=== PATIENT | female | born 1950 | race American Indian/Alaskan Native ===

== ENCOUNTER 2020-07-31 07:32 | Day surgery (SDC) | payer MEDICARE ==
[2020-07-31] MEDS ORDERED: SODIUM CHLORIDE 0.9% 500 ML 500 ML ONE (08:04)
[2020-07-31] MEDS ORDERED: ASPIRIN EC 325 MG TAB PO ONE (08:08)
[2020-07-31] MEDS ORDERED: ASPIRIN 325 MG TAB ONE (08:12)
[2020-07-31 08:27] LABS: Basophils % (Auto) 0.6 % (0.0-1.8); Eosinophils # (Auto) 0.1 K/mm3 (0.0-0.4); Eosinophils % (Auto) 1.4 % (0.0-4.3); Hemoglobin 13.2 gm/dl (10.1-14.3); Lymphocytes # (Auto) 1.5 K/mm3 (1.2-5.4); Mean Corpuscular HGB Conc 33 % (30-34); Mean Corpuscular Volume 86 fl (79-97); Monocytes # (Auto) 0.7 K/mm3 (0.0-0.8); Monocytes % (Auto) 11.2 % (0.0-7.3); Platelet Count 241 K/mm3 (140-440); Red Blood Count 4.66 M/mm3 (3.65-5.03); Red Cell Distribution Width 14.6 % (13.2-15.2)
[2020-07-31 08:37] LABS: INR 0.91 (0.87-1.13)
[2020-07-31] MEDS ORDERED: VERAPAMIL 5 MG/2 ML INJ ONE (08:37)
[2020-07-31] MEDS ORDERED: HEPARIN 10,000 UNITS/10 ML VIAL ONE (08:37)
[2020-07-31] MEDS ORDERED: LIDOCAINE (2%) 20 MG/1 ML VIAL 20 ML MDV INFILTRATI ONE (08:37)
[2020-07-31] MEDS ORDERED: HEPARIN/NS 5000 UNIT/500ML 1,000 ML IR ONE (08:37)
[2020-07-31] MEDS ORDERED: NITROGLYCERIN SYRINGE 3 ML ONE (08:39)
[2020-07-31 08:46] LABS: Blood Urea Nitrogen 8 mg/dL (7-17); Calcium 8.6 mg/dL (8.4-10.2); Hemolysis Index 466
[2020-07-31 08:48] LABS: BUN/Creatinine Ratio 11
[2020-07-31] MEDS ORDERED: MIDAZOLAM 2 MG/2 ML INJ ONE (08:54)
[2020-07-31] MEDS ORDERED: fentaNYL 100 MCG/2 ML INJ ONE (08:54)
[2020-07-31] MEDS ORDERED: SODIUM CHLORIDE 0.9% 500 ML 500 ML IV SCH (09:00)
[2020-07-31 10:41] LABS: BUN/Creatinine Ratio 10; Blood Urea Nitrogen 8 mg/dL (7-17); Calcium 8.9 mg/dL (8.4-10.2); Hemolysis Index 4
[2020-07-31] MEDS ORDERED: METOPROLOL TARTRATE 5 MG/5 ML INJ IV ONE (11:24)
--- NOTE | 2020-07-31 11:41 | Short Stay Summary ---
Short Stay Documentation Date of service: 07/31/20 - History H&P: obtained from office - Allergies and Medications Current Medications: Allergies Penicillins Allergy (Verified 07/31/20 08:08) Rash Home Medications Medication Instructions Recorded Confirmed Last Taken Type Atorvastatin [Lipitor Tab] 40 mg PO QHS 07/31/20 07/31/20 07/30/20 History Cetirizine HCl [Zyrtec 10mg tab] 10 mg PO DAILY 07/31/20 07/31/20 07/30/20 Hi story Gabapentin [Neurontin] 600 mg PO BID 07/31/20 07/31/20 07/30/20 History Levothyroxine Sodium 125 mcg PO DAILY 07/31/20 07/31/20 07/30/20 History [Levothyroxine] Metoprolol Xl [Metoprolol 50 mg PO QDAY 07/31/20 07/31/20 07/30/20 History SUCCINATE ER TAB] Spironolactone [Aldactone] 25 mg PO QDAY 07/31/20 07/31/20 07/30/20 History Active Medications Sodium Chloride (Nacl 0.9% 500 Ml) 500 mls @ 50 mls/hr IV DIRECT RAIZA Stop: 07/31/20 18:59 - Brief post op/procedure progress note Date of procedure: 07/31/20 Pre-op diagnosis: sob Post-op diagnosis: same Procedure: see report Anesthesia: local Estimated blood loss: minimal Pathology: none - Disposition Condition at discharge: Good Disposition: DC-01 TO HOME OR SELFCARE - Discharge Diagnoses (1) LBBB (left bundle branch block) Status: Chronic (2) Hypertension Status: Chronic Qualifiers: Hypertension type: essential hypertension Qualified Code(s): I10 - Essential (primary) hypertension (3) Hyperlipemia, mixed Status: Chronic Short Stay Discharge Plan Activity: advance as tolerated Diet: low fat, low cholesterol, low salt Follow up with: JAKUB HARKINS MD [Primary Care Provider] - 7 Days
[2020-07-31] MEDS ORDERED: traMADol 50 MG TAB PO PRN (12:00)
[2020-07-31] MEDS ORDERED: HYDROcodone/ACETAMINOPHEN 5-325 MG TAB PO PRN (12:00)
--- NOTE | 2020-07-31 14:00 | Electrocardiograph Report ---
[facility] Test Date: 2020-07-31 Test Time: 08:29:47 Pat Name: DAMION DUKE Department: Room: Gender: F Computer Science Instructor: BRAULIO : 1950 Requested By: WENDY BOONE Order Number: [id number] Reading MD: Patricia Reddy Measurements Intervals [place] Rate: 82 P: 35 AR: 164 QRS: 38 QRSD: 150 T: 32 QT: 448 QTc: 525 Interpretive Statements Sinus rhythm Left bundle branch block No previous ECG available for comparison Electronically Signed On 07-31-2020 14:00:38 EDT by Patricia Reddy
[2020-07-31 15:04] VITALS: BP 123/66
--- NOTE | 2020-07-31 16:16 | Cardiac Catherization Report ---
DATE OF SERVICE: 07/31/2020 LEFT HEART CATHETERIZATION CLINICAL INFORMATION: A 70-year-old female with new left bundle-branch block given persistent shortness of breath with exertion despite beta-jaleel therapy. She is here for a left heart catheterization. Procedure was done. Moderate sedation started at 1118 hours and finished at 1132 hours, 14 minutes of moderate sedation. DESCRIPTION OF PROCEDURE: Procedure was done via the right radial artery, sterile technique, local anesthesia. A 6 [place] radial sheath inserted engaged JL-3.5 catheter. Left main is large and patent, bifurcates into a large LAD. It was a wraparound LAD that is patent. Diagonal 1 is a medium caliber was patent. Circumflex was noted to be a large caliber vessel was patent and the distal part bifurcates into small to medium caliber OM1 with multiple branches that are patent. codominant system. A small LPDA is noted. RCA engaged JR4 catheter shows a small to medium caliber vessel, patent small PDA patent. LV gram done in [place] and RODRÍGUEZ view shows EF of 55-60%. LVEDP 14 mmHg. LV is 121, aortic is 121/71. No gradient across the aortic valve on pullback, 5 [place] catheter was taken over guidewire. A 6 [place] radial sheath was discontinued radial dressing applied. No hematoma, no bleeding. SUMMARY: Normal coronary arteries codominant system, moderate tortuosity, normal LV function. Continue medical management and discussed this with the patient and the patient's family. TID: [id number] RECEIPT: [id number] TALA/HENRY/PEG MTDD
== END 2020-07-31 07:33 | disposition home or self-care (01) ==
LOC: CATHLABREC 07:32
PROVIDERS: ATTEND Internal Medicine
DX: R06.02 Shortness of breath (principal); R07.9 Chest pain, unspecified; I44.7 Left bundle-branch block, unspecified; I10 Essential (primary) hypertension; E78.2 Mixed hyperlipidemia; G47.30 Sleep apnea, unspecified; M19.90 Unspecified osteoarthritis, unspecified site; Z88.0 Allergy status to penicillin; Z79.899 Other long term (current) drug therapy; Z98.890 Other specified postprocedural states
CPT/HCPCS: 36415; 80048; 85025; 85610; 85730; 93005; 93458; 99156; C1894; J1644; J2250; J3010; J7040; Q9967